=== PATIENT | male | born 1980 | race Caucasian/White ===

== ENCOUNTER 2019-07-15 18:42 | Emergency (ER) | payer MEDICAID ==
[~2019-07-15] VITALS: Ht 177.8 cm; Wt 83.9 kg
[2019-07-15 19:15] VITALS: Ht 177.8 cm; Wt 83.9 kg
[2019-07-15 20:11] LABS: BASOPHIL % 0.4 % (0-2); PLATELET COUNT 210 x10^3mcL (130-400); RED CELL DISTRIBUTION WIDTH 13.8 % (11.5-14.5)
[2019-07-15 20:27] LABS: CALCIUM 8.6 mg/dL (8.5-10.1); CARBON DIOXIDE 28.7 mmol/L (21-32); CHLORIDE SERUM 104 mmol/L (98-107); CREATININE SERUM 0.9 mg/dL (0.7-1.3); GFR1 > 60 mL/min; GLUCOSE SERUM 106 mg/dL (74-106); POTASSIUM SERUM 3.9 mmol/L (3.5-5.1); SODIUM SERUM 142 mmol/L (136-145)
[2019-07-15 20:54] LABS: ALBUMIN 3.6 g/dL (3.4-5.0); ALKALINE PHOSPHATASE 41 U/L (46-116); ALT/SGPT 29 U/L (16-63); AST/SGOT 16 U/L (15-37); BILIRUBIN TOTAL 0.34 mg/dL (0.20-1.00); TOTAL PROTEIN, SERUM 7.2 g/dL (6.4-8.2)
[2019-07-15 21:24] VITALS: BP 118/70
== END 2019-07-15 21:24 | disposition home or self-care (01) ==
LOC: ED 18:42
PROVIDERS: Emergency Medicine
DX: R56.9 Unspecified convulsions (principal); R89.2 Abnormal level of other drugs, medicaments and biological substances in specimens from other organs, systems and tissues
CPT/HCPCS: 36415

== ENCOUNTER 2019-09-10 22:18 | Emergency (ER) | payer MEDICAID ==
[~2019-09-10] VITALS: Ht 180.3 cm; Wt 77.1 kg
[2019-09-10 22:28] VITALS: Ht 180.3 cm; Wt 77.1 kg
[2019-09-10 22:51] LABS: CALCIUM 8.7 mg/dL (8.5-10.1); CARBON DIOXIDE 32.2 mmol/L (21-32); CHLORIDE SERUM 102 mmol/L (98-107); CREATININE SERUM 0.9 mg/dL (0.7-1.3); GFR1 > 60 mL/min; GLUCOSE SERUM 122 mg/dL (74-106); POTASSIUM SERUM 4.3 mmol/L (3.5-5.1); SODIUM SERUM 140 mmol/L (136-145)
[2019-09-10 22:55] LABS: ALBUMIN 3.9 g/dL (3.4-5.0); ALKALINE PHOSPHATASE 47 U/L (46-116); ALT/SGPT 27 U/L (16-63); AST/SGOT 12 U/L (15-37); BILIRUBIN TOTAL 0.36 mg/dL (0.20-1.00); TOTAL PROTEIN, SERUM 7.5 g/dL (6.4-8.2)
[2019-09-10 22:58] LABS: BASOPHIL % 0.5 % (0-2); PLATELET COUNT 149 x10^3mcL (130-400); RED CELL DISTRIBUTION WIDTH 14.1 % (11.5-14.5)
[2019-09-11 00:04] VITALS: BP 118/74
== END 2019-09-11 00:04 | disposition home or self-care (01) ==
LOC: ED 22:18
PROVIDERS: Emergency Medicine
DX: G40.909 Epilepsy, unspecified, not intractable, without status epilepticus (principal)
CPT/HCPCS: 36415

== ENCOUNTER 2019-11-07 02:21 | Emergency (ER) | payer MEDICAID ==
[~2019-11-07] VITALS: Ht 167.6 cm; Wt 68.0 kg
[2019-11-07 02:27] VITALS: Ht 167.6 cm; Wt 68.0 kg
[2019-11-07 04:55] VITALS: BP 111/72
== END 2019-11-07 05:32 | disposition home or self-care (01) ==
LOC: ED 02:21
DX: R56.9 Unspecified convulsions (principal)
CPT/HCPCS: 82962